=== PATIENT | female | born 1950 | race Caucasian/White ===

== ENCOUNTER 2020-09-01 08:48 | Day surgery (SDC) | payer MEDICARE ==
[~2020-09-01] VITALS: Ht 160 cm; Wt 61.1 kg
[~2020-09-01 08:48] MED LIST: ASPI81TA26 PO; ATOR40TA75 PO; DULO30CA9 PO; ESTR1TAB PO; HYDR-3363 PO; HYDR-3713 PO; ISOS1TAB36 PO; LIDOCAINE 2% 100MG/5ML SDV (FOR ANES.) As Ordered ONE; LISI-898 PO; LORA2TAB14 PO; LR 1,000 ML IV ONE; LYRI75CA PO; MIDAZOLAM INJ 2MG/2ML VIAL (J2250 PER 1MG) As Ordered ONE; NIFE1TAB50 PO; NITR0.4S14 SL; OXYB-54 PO; PANT40TA29 PO; PARO20TA4 PO; TRAZ-252 PO; ceFAZolin SOD 2 GM in IV 1 EA IV ONE; fentaNYL 100 MCG/2 ML INJECTION (J3010) As Ordered ONE; propofoL 500 MG/50 ML VIAL As Ordered ONE
[2020-09-01] MEDS ORDERED: LIDOCAINE 1% SDV 30ML VIAL As Ordered ONE (09:11)
[2020-09-01] MEDS ORDERED: BUPIVACAINE HCL 0.5% 30 ML VIAL As Ordered ONE (09:11)
[2020-09-01] MEDS ORDERED: dexameTHASONE 4 MG/ML 1ML VIAL (J1100 PER 1MG) As Ordered ONE ×3 (09:12→11:26)
[2020-09-01] MEDS ORDERED: ePHEDrine SULFATE 25 MG/5 ML(5MG/ML) SYRINGE As Ordered ONE (11:20)
[2020-09-01] MEDS ORDERED: ONDANSETRON 4MG/2ML VIAL As Ordered ONE (11:21)
[2020-09-01] MEDS ORDERED: KETOROLAC 60MG 2ML VIAL As Ordered ONE (11:21)
[2020-09-01] MEDS ORDERED: ACETAMINOPHEN 1000MG 100ML IV BTL (OFIRMEV) (J0131 PER 10MG) As Ordered ONE (11:23)
[2020-09-01] MEDS ORDERED: PHENYLephrine 500MCG 5ML (100MCG/ML) SYRINGE As Ordered ONE (11:46)
[2020-09-01] MEDS ORDERED: HYDR-3713 PO (12:19)
[2020-09-01 13:00] VITALS: BP 118/70
--- NOTE | 2020-09-01 13:21 | RO ---
OPERATIVE NOTE DATE OF OPERATION: 09/01/2020 PREOPERATIVE DIAGNOSIS: Left bunion hallux valgus and right tailor's bunion. POSTOPERATIVE DIAGNOSIS: Left bunion hallux valgus and right tailor's bunion. PROCEDURE: Left foot bunionectomy, 1st metatarsal osteotomy, Eren osteotomy, right tailor's bunionectomy with 5th metatarsal osteotomy. SURGEON: Derik Doll DPM OFFICER LIEUTENANT: None. ANESTHESIA: Monitored anesthesia care, preop injection of 19 mL of 1:1 mixture of 1% Lidocaine plain and 0.5% Marcaine plain. ESTIMATED BLOOD LOSS: Minimal. MATERIALS: Arthrex 2.5 and 3.5 headless compression screw, Arthrex DynaNite staple, 3-0 and 4-0 Vicryl, 4-0 nylon. INJECTABLES: 2 mL Decadron 4 mg per mL. COMPLICATIONS: None. CONDITION: Stable. INDICATIONS: Kim Cordova is a 70 female who presents to [facility] with painful bunion and tailor's bunion. She presented for surgical correction. Patient side and site were identified and marked in preop holding area. Consent was reviewed and obtained. Risks, complications and alternatives to the procedure were explained to the patient in detail and all questions were answered. DESCRIPTION OF PROCEDURE: The patient was brought to the operating room and placed on the operating room table in supine position. Monitored anesthesia care was delivered by the anesthesia team. Preop injection of 19 mL of 1:1 mixture of 1% Lidocaine plain and 0.5% Marcaine plain were injected in both feet. Both feet were prepped and draped in normal sterile fashion. Tourniquet was applied to both ankles and inflated to 250 mmHg. Attention was first paid to the left foot. Dorsal incision was drawn over the 1st metatarsophalangeal joint and carried through with #15 blade. Dissection was carried down until the metatarsophalangeal joint capsule was identified. T-capsulotomy was performed exposing the metatarsal head. Next lateral release was performed releasing the adductor tendon, lateral capsule and sesamoidal ligament. McGlamry elevator was used to release the plantar structure and medial eminence of the 1st metatarsal was resected with sagittal saw. Osteotomy was performed in the metatarsal head transposing it laterally. This was fixated with Arthrex 3.5 headless compression screw. Remaining bone ledge was resected with sagittal saw and smoothed with rasp. Attention was then paid to the proximal phalanx. A wedge of the medial cortex was removed using sagittal saw and fixated with Arthrex DynaNite staple. Site was irrigated with normal saline. Capsular repair was performed with 3-0 Vicryl, subcutaneous closure with 4-0 Vicryl and skin closure with 4-0 nylon. 1 mL of Decadron was injected. Attention was paid to the right foot. Dorsal incision was drawn over the 5th metatarsal and carried down with #15 blade. Dissection was carried down until 5th metatarsophalangeal joint capsule was identified. Linear capsulotomy was performed exposing the 5th metatarsal head. The lateral eminence was resected with sagittal and osteotomy was performed in the metatarsal head transposing it medially. This was fixated with Arthrex 2.5 headless compression screw. Remaining bone ledge was resected with sagittal saw and smoothed with rasp. Site was irrigated with normal saline. Deep closure was performed with 3-0 Vicryl, subcutaneous tissues closed with 4-0 Vicryl and skin closed with 4-0 nylon. 1 mL Decadron was injected. Sterile dressing was applied. Tourniquets were deflated. The patient was brought to PACU with vital signs stable, neurovascular status intact. She will be partial weightbearing and follow up in office in two days.
== END 2020-09-01 13:05 | disposition home or self-care (01) ==
LOC: M SDC 08:48
PROVIDERS: ATTEND Podiatrist Foot & Ankle Surgery
DX: M20.12 Hallux valgus (acquired), left foot (principal); M21.621 Bunionette of right foot; I10 Essential (primary) hypertension; E78.5 Hyperlipidemia, unspecified; Z79.899 Other long term (current) drug therapy; F41.9 Anxiety disorder, unspecified; F32.9 Major depressive disorder, single episode, unspecified; Z88.0 Allergy status to penicillin; Z88.8 Allergy status to other drugs, medicaments and biological substances
CPT/HCPCS: 28110; 28299; C1713; J0131; J0690; J1100; J1885; J2250; J2370; J2405; J3010

== ENCOUNTER 2021-07-20 07:05 | Day surgery (SDC) | payer MEDICARE ==
[~2021-07-20] VITALS: Ht 157.5 cm; Wt 60.1 kg
[~2021-07-20 07:05] MED LIST changes: -LIDOCAINE 2% 100MG/5ML SDV (FOR ANES.) As Ordered ONE; -LISI-898 PO; +LISI5TAB11 PO; -LR 1,000 ML IV ONE; -MIDAZOLAM INJ 2MG/2ML VIAL (J2250 PER 1MG) As Ordered ONE; -fentaNYL 100 MCG/2 ML INJECTION (J3010) As Ordered ONE; -propofoL 500 MG/50 ML VIAL As Ordered ONE
[2021-07-20] MEDS ORDERED: INSULIN LISPRO (NovoLOG) PER UNIT SC PRN (07:10)
[2021-07-20] MEDS ORDERED: LR 1,000 ML IV SCH (07:10)
[2021-07-20] MEDS ORDERED: dexameTHASONE 4 MG/ML 1ML VIAL (J1100 PER 1MG) As Ordered ONE ×2 (08:51→09:17)
[2021-07-20] MEDS ORDERED: BUPIVACAINE HCL 0.5% 30ML VIAL As Ordered ONE (08:51)
[2021-07-20] MEDS ORDERED: LIDOCAINE 1% SDV 30ML VIAL As Ordered ONE (08:51)
[2021-07-20] MEDS ORDERED: LIDOCAINE 2% 100MG/5ML SDV (FOR ANES.) As Ordered ONE (09:13)
[2021-07-20] MEDS ORDERED: ONDANSETRON 4MG/2ML VIAL As Ordered ONE (09:13)
[2021-07-20] MEDS ORDERED: fentaNYL 100 MCG/2 ML INJECTION As Ordered ONE (09:13)
[2021-07-20] MEDS ORDERED: propofoL 200 MG/20 ML VIAL As Ordered ONE (09:13)
[2021-07-20] MEDS ORDERED: MIDAZOLAM INJ 2MG/2ML VIAL (J2250 PER 1MG) As Ordered ONE (09:13)
[2021-07-20] MEDS ORDERED: propofoL 500 MG/50 ML VIAL As Ordered ONE (09:14)
[2021-07-20] MEDS ORDERED: HYDR-3713 PO (11:32)
[2021-07-20 12:05] VITALS: BP 110/61
== END 2021-07-20 12:22 | disposition home or self-care (01) ==
LOC: M SDC 07:05
PROVIDERS: ATTEND Podiatrist Foot & Ankle Surgery
DX: M89.8X7 Other specified disorders of bone, ankle and foot (principal); T84.84XA Pain due to internal orthopedic prosthetic devices, implants and grafts, initial encounter; I10 Essential (primary) hypertension; E78.5 Hyperlipidemia, unspecified; K21.9 Gastro-esophageal reflux disease without esophagitis; F32.A Depression, unspecified; F41.9 Anxiety disorder, unspecified; G43.909 Migraine, unspecified, not intractable, without status migrainosus; Z79.82 Long term (current) use of aspirin; Z79.899 Other long term (current) drug therapy; Z88.0 Allergy status to penicillin; Z88.8 Allergy status to other drugs, medicaments and biological substances
CPT/HCPCS: 20680; 28122; 76000; 88300; J0690; J1100; J2250; J2405; J3010